=== PATIENT | female | born 1955 | race Caucasian/White ===

== ENCOUNTER 2017-08-26 09:42 | Emergency (ER) | payer BC ==
[2017-08-26 10:03] VITALS: BP 127/76
[2017-08-26] MEDS ORDERED: Ibuprofen TAB* 600 MG PO ONE (11:32)
[2017-08-26] MEDS ORDERED: Cephalexin CAP* 500 MG PO ONE (11:32)
--- NOTE | 2017-08-26 11:46 | UC ---
Upper Extremity HPI - HPI Summary HPI Summary: around left thumb nail painful swollen area of purulence - History of Current Complaint Chief Complaint: UCUpperExtremity Stated Complaint: RED SWOLLEN THUMB Time Seen by Provider: 08/26/17 10:52 Hx Obtained From: Patient Hx Last Menstrual Period: "Long time ago--I don't have them any more." ?: No Onset/Duration: Sudden Onset, Lasting Days, Worse Since - this morning Severity Initially: Mild Severity Currently: Moderate Pain Intensity: 6 Location Of Pain: Is Discrete @ - arounf left thumb nail Character: Throbbing Aggravating Factor(s): Movement Alleviating Factor(s): Nothing Associated Signs And Symptoms: Positive: Negative Related History: Dominant Hand Right - Allergies/Home Medications Allergies/Adverse Reactions: Allergies Allergy/AdvReac Type Severity Reaction Status Date / Time Sulfa Antibiotics Allergy Severe GI Upset Verified 08/26/17 09:56 MUSCLE RELAXERS Allergy Severe Anaphylatic Uncoded 08/26/17 09:56 Shock Home Medications: Home Medications Carboxymethylcellulose Sodium [Refresh Tears] 1 drop BOTH EYES TID PRN 08/26/17 [History Confirmed 08/26/17] Hypromellose (Ophth) [Genteal Severe] 1 applic BOTH EYES QID 08/26/17 [History Confirmed 08/26/17] Sodium Chloride Hypertonic [Sunita 128] 1 applic BOTH EYES BEDTIME 08/26/17 [ History Confirmed 08/26/17] PMH/Surg Hx/FS Hx/Imm Hx Previously Healthy: No Other History Of: Hepatitis C Negative For: HIV, Hepatitis B, Anticoagulant Therapy - Surgical History Surgical History: Yes Surgery Procedure, Year, and Place: [facility] - Family History Known Family History: Positive: None - Social History Occupation: Employed Part-time - business relations manager Lives: With Family Alcohol Use: Rare Substance Use Type: None Smoking Status (MU): Never Smoked Tobacco Review of Systems Constitutional: Negative Skin: Negative Eyes: Negative ENT: Negative Respiratory: Negative Cardiovascular: Negative Gastrointestinal: Negative Genitourinary: Negative Motor: Negative Neurovascular: Negative Musculoskeletal: Arthralgia - left distal thumb, Edema - left distal thumb Neurological: Negative Psychological: Negative Is Patient Immunocompromised?: No All Other Systems Reviewed And Are Negative: Yes Physical Exam Triage Information Reviewed: Yes Appearance: Well-Appearing, No Pain Distress, Well-Nourished Vital Signs: Initial Vital Signs Temp 97.8 F 08/26/17 09:50 Pulse 76 08/26/17 09:50 Resp 18 08/26/17 09:50 BP 127/76 08/26/17 09:50 Pulse Ox 98 08/26/17 09:50 Vital Signs Reviewed: Yes Eye Exam: Normal Eyes: Positive: Conjunctiva Clear ENT Exam: Normal ENT: Positive: Normal ENT inspection, Hearing grossly normal. Negative: Nasal congestion, Nasal drainage, Trismus, Muffled/hoarse voice Dental Exam: Normal Neck exam: Normal Neck: Positive: Supple, Nontender, No Lymphadenopathy Respiratory Exam: Normal Respiratory: Positive: Chest non-tender, No respiratory distress, No accessory muscle use Cardiovascular Exam: Normal Cardiovascular: Positive: Pulses Normal, Brisk Capillary Refill Musculoskeletal Exam: Normal Musculoskeletal: Positive: Strength Intact, ROM Intact Neurological Exam: Normal Neurological: Positive: Alert, Muscle Tone Normal Psychological Exam: Normal Skin: Positive: Other - red warm swollen area with purulent drainage around left thumb nail Upper Extremity Course/Dx - Course Course Of Treatment: dressing warm soak, keflex, ibuprofen follow with pcp prn - Differential Dx/Diagnosis Differential Diagnosis/HQI/PQRI: Burn, Bursitis, Hematoma, Laceration, Other - paronychia Provider Diagnoses: Paronychia left thumb nail Discharge - Discharge Plan Condition: Stable Disposition: HOME Prescriptions: Cephalexin CAP* [Keflex CAP*] 500 mg PO QID #27 cap Ibuprofen TAB* [Motrin TAB* 600 MG] 600 mg PO Q6H PRN #030 tab PRN Reason: pain Patient Education Materials: Paronychia (ED), Warm Compress or Soak (ED) Referrals: Jose Meredith MD [Primary Care Provider] - If Needed
--- NOTE | 2017-08-26 18:21 | UC ---
Progress - Progress Note Progress Note: call patient discontinue Keflex, Bactrim Ds po bid for 7 days sent electronically to pharmacy
== END 2017-08-26 11:51 | disposition home or self-care (01) ==
LOC: UCEAST 09:42
DX: L03.012 Cellulitis of left finger (principal); B95.62 Methicillin resistant Staphylococcus aureus infection as the cause of diseases classified elsewhere; Z88.2 Allergy status to sulfonamides
CPT/HCPCS: 87070; 87077; 87186; 87205; 87640; 87641; 99212; A9270-GY; G0463

== ENCOUNTER 2022-04-13 05:58 | Observation (INO) ==
[2022-04-13] MEDS ORDERED: Lactated Ringers 1000 ml BAG 1,000 ML IV SCH (06:00)
[2022-04-13] MEDS ORDERED: Buffered Lidocaine 1% SYRIN 1 ml INTRADERM ONE (06:00)
[2022-04-13] MEDS ORDERED: ceFAZolin 2 GM in NS PREMIX 2 GM/100 ML BAG IVPB ONE (06:39)
[2022-04-13] MEDS ORDERED: ROPIVACAINE 5 MG/ML 30 ML BTL (0.5%) ONE (06:54)
[2022-04-13] MEDS ORDERED: fentaNYL 100 mcg/2 ml 50 MCG/ML VIAL ONE (07:01)
[2022-04-13] MEDS ORDERED: Dexmedetomidine 200 mcg/2 ml 2 ml VIAL (200 mcg) ONE (07:01)
[2022-04-13] MEDS ORDERED: Midazolam 2 mg/2 ml VIAL 1 mg/ml 2 ml VIAL (2 mg) ONE (07:01)
[2022-04-13] MEDS ORDERED: Rocuronium 50 mg VIAL 10 mg/ml 5 ml VIAL (50 mg) ONE (07:01)
[2022-04-13] MEDS ORDERED: Propofol 10 MG/ML 20 ML BTL ONE (07:03)
[2022-04-13] MEDS ORDERED: ceFAZolin VIAL VIAL ONE (07:25)
[2022-04-13] MEDS ORDERED: Bupivacaine 0.25% SDV PF 10 ML VIAL INJ ONE (07:25)
[2022-04-13] MEDS ORDERED: Lidocaine 1% w EPI 1:200,000 SDV 30 ML VIAL ONE (07:25)
[2022-04-13] MEDS ORDERED: fentaNYL 100 mcg/2 ml 50 MCG/ML VIAL IV PRN (08:36)
[2022-04-13] MEDS ORDERED: Naloxone 0.4 mg VIAL 0.4 mg/ml 1 ml VIAL IV PRN (08:36)
[2022-04-13] MEDS ORDERED: oxyCODONE/Acetamin 5/325 mg TAB PO PRN (08:36)
[2022-04-13] MEDS ORDERED: Ondansetron 4 mg VIAL 2 MG/ML 2 ml VIAL IV PRN (08:36)
[2022-04-13] MEDS ORDERED: EPHEDrine (Pressors) 50 MG/ML VIAL ONE (08:49)
[2022-04-13] MEDS ORDERED: Phenylephrine IV 10 MG/ML 1 ml VIAL ONE (08:49)
[2022-04-13] MEDS ORDERED: Magnesium Hydroxide LIQ 30 ML UDC PO PRN (10:39)
[2022-04-13] MEDS ORDERED: Lactulose 30 ml UDC PO PRN (10:39)
[2022-04-13] MEDS ORDERED: Ondansetron ODT 4 mg TAB 4 MG TAB PO PRN (10:39)
[2022-04-13] MEDS ORDERED: Aspirin EC 81 mg TAB.EC (enteric coated) PO PRN (10:49)
[2022-04-13] MEDS ORDERED: ARTIFICIAL TEARS 0.3% BOTH EYES PRN (10:49)
[2022-04-13] MEDS ORDERED: Ondansetron 4 mg VIAL 2 MG/ML 2 ml VIAL ONE (10:49)
[2022-04-13] MEDS ORDERED: Albuterol HFA INHALER 8 gm MDI INH PRN (10:49)
[2022-04-13] MEDS ORDERED: oxyCODONE/Acetamin 5/325 mg TAB ONE (11:20)
[2022-04-13] MEDS ORDERED: Carboxymethylcellulose/Glyceri 10 ML OPHTH.GEL lubricant eye gel BOTH EYES PRN (13:08)
[2022-04-13] MEDS: Lactated Ringers 1000 ml BAG 1,000 ML IV SCH (14:09)
[2022-04-13] MEDS: ceFAZolin 1 GM ADVAN 1 GM in NS 0.9% 50 ML 50 ML IVPB SCH (16:04)
[2022-04-13] MEDS: Ondansetron 4 mg VIAL 2 MG/ML 2 ml VIAL IV PRN ×2 (17:47→23:32)
[2022-04-13] MEDS ORDERED: Sodium Chloride 5% OPTH OINT 3.5 gm TUBE BOTH EYES SCH (21:00)
[2022-04-13] MEDS: Magnesium Hydroxide LIQ 30 ML UDC PO SCH (21:01)
[2022-04-13] MEDS: Morphine 2 MG/ML SYRINGE IV PRN (23:31)
[2022-04-14] MEDS: ceFAZolin 1 GM ADVAN 1 GM in NS 0.9% 50 ML 50 ML IVPB SCH ×2 (00:16→07:49)
[2022-04-14] MEDS: Lactated Ringers 1000 ml BAG 1,000 ML IV SCH (01:59)
[2022-04-14] MEDS: Ondansetron 4 mg VIAL 2 MG/ML 2 ml VIAL IV PRN (06:07)
[2022-04-14] MEDS: Morphine 2 MG/ML SYRINGE IV PRN (06:07)
[2022-04-14 06:52] LABS: Hematocrit 32 % (35-47); Hemoglobin 10.6 g/dL (12.0-16.0); Platelet Count 153 10^3/uL (150-450)
[2022-04-14 07:11] LABS: Calcium 8.1 mg/dL (8.6-10.3); Potassium 4.1 mmol/L (3.5-5.0); eGFR CKD-EPI 102.3 (>60)
[2022-04-14] MEDS ORDERED: Vitamin THERAPEUTIC TAB PO SCH (09:00)
[2022-04-14] MEDS: Magnesium Hydroxide LIQ 30 ML UDC PO SCH (10:11)
[2022-04-14 11:12] VITALS: BP 147/74
== END 2022-04-14 13:00 | disposition home or self-care (01) ==
LOC: SSU 05:58 → OR 05:58
PROVIDERS: ADMIT Orthopaedic Surgery Sports Medicine; ATTEND Orthopaedic Surgery Sports Medicine